=== PATIENT | male | born 1975 | race Caucasian/White ===

== ENCOUNTER 2020-12-17 10:22 | Emergency (ER) | payer MEDICAID ==
[~2020-12-17] VITALS: Ht 185.4 cm; Wt 77.0 kg
[2020-12-17 10:34] VITALS: BP 128/80
[2020-12-17] MEDS ORDERED: LIDOCAINE HCL 1% 20ML VIAL (Pyxis) INJ INFIL ONE (11:30)
[2020-12-17] MEDS ORDERED: CEFTRIAXONE SODIUM 500 MG/VIAL IM ONE (11:30)
[2020-12-17] MEDS ORDERED: DOXY100C5 MT (11:41)
== END 2020-12-17 13:27 | disposition home or self-care (01) ==
LOC: ER 10:22
DX: Z20.2 Contact with and (suspected) exposure to infections with a predominantly sexual mode of transmission (principal); F12.10 Cannabis abuse, uncomplicated; F17.210 Nicotine dependence, cigarettes, uncomplicated
CPT/HCPCS: 96372; 99283; J0696; J3490; 87491; 87591